=== PATIENT | male | born 1995 ===

== ENCOUNTER 2022-09-21 00:47 | Emergency (ER) | payer BC, SELFPAY ==
[2022-09-21] VITALS (7 sets, daily range): BP systolic 138–162; BP diastolic 90–103; PULSE 86–111; RESP 14–18; TEMP 36.6; O2SAT 99–100
[2022-09-21 01:16] LABS: Basophils Percent Auto 0.3 % (0.2-1.2); Eosinophils Percent Auto 0.2 % (0-4.4); Hematocrit 46.6 % (42.0-52.0); Hemoglobin 15.8 g/dL (14.0-18.0); Immature Granulocyte Absolute 0.05 K/mm3 (0.00-0.031); Immature Granulocyte Percent A 0.3 % (0-0.5); Lymphocytes Absolute Auto 1.25 K/mm3 (0.9-3.2); Lymphocytes Percent Auto 8.4 % (18.3-44.2); Mean Corpuscular HGB Conc 33.9 g/dl (32-36); Mean Corpuscular Hemoglobin 29.4 pg (26-34); Mean Corpuscular Volume 86.6 fl (80-100); Mean Platelet Volume 10.4 fl (7.4-10.4); Monocytes Absolute Auto 0.5 K/mm3 (0.1-0.6); Monocytes Percent Auto 3.1 % (2.6-8.5); Neutrophils Percent Auto 87.7 % (45.5-73.1); Platelet Count Result 248 k/mm3 (150-375); Red Blood Count 5.38 M/mm3 (4.6-6.20); Red Cell Distribution Width 12.8 % (11.5-14.5); White Blood Count 14.9 K/mm3 (4.5-10.0)
[2022-09-21 01:39] LABS: Alanine Aminotransferase 24 U/L (6-50); Albumin Level 5.3 g/dL (3.5-5.1); Alkaline Phosphatase 81 U/L (38-126); Anion Gap 9 mmol/L (8-16); Aspartate Amino Transferase 21 U/L (17-59); Bilirubin,Total 0.7 mg/dL (0.2-1.3); Blood Urea Nitrogen 16 mg/dL (9-20); Calcium 9.5 mg/dL (8.4-10.2); Carbon Dioxide 30 mmol/L (22-30); Chloride 100 mmol/L (98-107); Estimated CRCL calculation 122 ml/min; Estimated Glomerular Filt Rate > 60; Glucose 142 mg/dL (65-110); Lipase 54 U/L (23-300); Potassium 4.1 mmol/L (3.4-5.0); Sodium 139 mmol/L (137-145)
[2022-09-21 01:49] LABS: Appearance Urine Turbid (Clear); Bacteria Urine None Seen /hpf; Bilirubin Urine Negative (Negative); Blood Urine Negative (Negative); Color Urine Dark Yellow (Yellow); Glucose Urine UA Negative (Negative); Ketones Urine Trace mg/dL (Negative); Leukocyte Esterase Ur Negative LEU/UL (Negative); Need Manual Microscopic Reviewed; Nitrate Urine Negative (Negative); Protein Urine Trace mg/dL (Negative); RBC Urine 0-2 /hpf (0-2); Specific Grav Ur 1.034 (1.001-1.035); Squamous Epithelial Cell Urine None seen /hpf (Few); Urobilinogen Urine 0.2 mg/dL (<2.0); WBC Urine 0-5 /hpf; pH Urine 5.5 (5.0-9.0)
[2022-09-21 01:50] LABS: Add Urine Microscopic? YES
[2022-09-21] MEDS: DICYCLOMINE HCL INJ 20 MG/2 ML VIAL IM (03:14)
[2022-09-21] MEDS: SODIUM CHLORIDE 0.9% IV 1,000 ML 999 ML IV CONT (03:17)
[2022-09-21] MEDS: METOCLOPRAMIDE HCL INJ 10 MG/2 ML VIAL IV PUSH (03:18)
[2022-09-21] MEDS: FAMOTIDINE 20 MG/2 ML VIAL IV PUSH (03:20)
--- NOTE | 2022-09-21 03:47 | ED.GENADULT ---
HPI - General Adult General Chief complaint: Abdominal Pain Stated complaint: abd'l pain Time Seen by Provider: 09/21/22 01:34 History of Present Illness HPI narrative: This is a 26-year-old male with chronic abdominal pain and alternating bowel habits presenting to ED with 5 days of lower crampy abdominal pain. Is nonradiating, 5 out 10 intensity and constant. He has had this many times in the past. Is improved with having a bowel movement. There are no exacerbating factors. Patient had diarrhea on Thursday and then had constipation. He has not eaten much for the last 2 days. He feels like he has to go the bathroom but he is unable to have a bowel movement. This causing him significant anxiety. Patient has been treated for irritable bowel syndrome in the past with amitriptyline but has not seen a GI physician. Related Data Home Medications Medication Instructions Recorded Confirmed tirzepatide 7.5 mg/0.5 mL 7.5 mg subcut WEEKLY 04/24/22 04/24/22 subcutaneous pen injector (Richie) Allergies Allergy/AdvReac Type Severity Reaction Status Date / Time No Known Allergies Allergy Verified 09/21/22 00:47 [facility] Past Medical History Medical History Abdominal discomfort BMI 33.0-33.9,adult BMI over 35 Irritable bowel syndrome Screening for lipid disorders Family History Family History Father Hypertension Other Family history of malignant neoplasm of breast Hyperlipidemia Social History Social History Smoking status: Former smoker Smokeless tobacco user: other Alcohol intake: current Exam Narrative: APPEARANCE: No apparent distress. Head: atraumatic. EYES: EOMI, NOSE: Atraumatic NECK: Trachea midline RESPIRATORY: No increased rate of breathing, clear to auscultation CARDIOVASCULAR: RRR, ABDOMINAL: Abdomen is soft nontender with no guarding or rebound MUSCULOSKELETAl: No obvious deformities NEURO: Alert. Moving 4/4 extremities SKIN:: Warm, dry. Normal color PSYCHIATRIC: Normal affect Course Vital Signs Vital signs: Vital Signs Temperature 98 F 09/21/22 00:49 Pulse Rate 111 H 09/21/22 00:49 Respiratory Rate 18 09/21/22 00:49 Blood Pressure 153/99 H 09/21/22 00:49 Pulse Oximetry 99 09/21/22 00:49 Oxygen Delivery Room Air 09/21/22 00:49 Temperature 98 F 09/21/22 00:49 Pulse Rate 90 09/21/22 03:29 Respiratory Rate 16 09/21/22 03:29 Blood Pressure 142/96 H 09/21/22 03:29 Pulse Oximetry 100 09/21/22 03:29 Oxygen Delivery Room Air 09/21/22 00:49 Medical Decision Making MDM Narrative Medical decision making narrative: -Presentation: 26-year-old male with IBS presenting with crampy abdominal pain. 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 Likely a stress reaction. Metabolic panel is within normal limits. Urine did not indicate infection. Dx tests considered but not ordered: CT abdomen pelvis, abdomen is soft nontender with no guarding or rebound. Given the patient's young age and chronicity of symptoms and not believe there would be a benefit to CT at this time. Patient and are in agreement. -Procedures: -Interventions: Reglan, normal saline, Pepcid, Bentyl -Shared decision making / Disposition: Upon re-evaluation the patient is feeling better. He would like to go home. He will be given prescriptions for
== END 2022-09-21 04:23 | disposition home or self-care (01) ==
PROVIDERS: Emergency Provider Emergency Medicine; PCP Family Medicine
DX: R10.30 Lower abdominal pain, unspecified (principal)
CPT/HCPCS: 36415; 80053; 81001; 83690; 85025; 96361; 96372; 96374; 96375; 99284; J0500; J2765; J7030

== ENCOUNTER 2024-10-25 16:44 | Emergency (ER) | payer BC, SELFPAY ==
[2024-10-25 16:57] VITALS: BP 139/91; PULSE 88; RESP 16; TEMP 36.6; O2SAT 100
[2024-10-25 17:24] LABS: EDUAAPPEAR Clear; EDUABILI Negative (Negative); EDUABLOOD Negative (Negative); EDUACOLOR1 Yellow; EDUAGLUCOSE Negative (Negative); EDUAKETONE Trace (Negative); EDUALEUKO Negative (Negative); EDUANITRATE Negative (Negative); EDUAPH 5.5; EDUAPROTEIN Negative (Negative); EDUAUROBILI 0.2
--- NOTE | 2024-10-25 17:33 | ED_ITS ---
HPI - Nausea/Vomiting/Diarrhea General Chief complaint: Urogenital-Male Stated complaint: DIARRHEA/URINARY FREQUENCY/DISCHARGE/BLEEDING Time Seen by Provider: 10/25/24 17:10 Source: patient and RN notes reviewed Mode of arrival: ambulatory Limitations: no limitations History of Present Illness HPI Narrative: 28-year-old male presents Express Care with spouse complaining of multiple medical complaints. Patient reports having nonstop diarrhea since yesterday. Patient denies any abdominal pain, nausea, vomiting, bloody stools, blood in vomit, or fevers. Patient also reports over the last 2 days he has noticed dysuria, penile discharge, and pain to his meatus of his penis. Patient reported discharge was white and has subsided. Reports still having pain to the meatus of his penis and having burning with urination. Patient denies any concerns for STIs. Related Data Home Medications ?Medication ?Instructions ?Recorded ?Confirmed ?Last Taken ?Type tirzepatide 7.5 mg/0.5 mL 7.5 mg subcut WEEKLY 04/24/22 04/24/22 Unknown History subcutaneous pen injector (Mounjaro) Allergies Allergy/AdvReac Type Severity Reaction Status Date / Time No Known Allergies Allergy Verified 09/21/22 00:47 Review of Systems Review of Systems: CONSTITUTIONAL: Denies fever, chills, or sweats. EYES: Denies visual changes, redness, or discharge. ENT: Denies rhinorrhea, congestion, sore throat, or otalgia. CARDIOVASCULAR: Denies chest pain, palpitations, or edema. RESPIRATORY: Denies cough or dyspnea. GASTROINTESTINAL: Denies abdominal pain, nausea, vomiting, bloody stools, hematochezia. Positive for diarrhea. GENITOURINARY: Positive for dysuria, penile pain, penile discharge. Negative for hematuria, testicular pain, testicular swelling, scrotal swelling. SKIN: Denies rash, suspicious lesions, or itching. MUSCULOSKELETAL: Denies back pain, joint pain, or myalgia. NEUROLOGIC: Denies headache, numbness, or weakness. PSYCHIATRIC: Denies anxiety or depression. All other systems reviewed are negative, except as documented in HPI. [facility] Past Medical History Medical History Abdominal discomfort BMI 33.0-33.9,adult BMI over 35 Irritable bowel syndrome Screening for lipid disorders Family History Family History Father Hypertension Other Family history of malignant neoplasm of breast Hyperlipidemia Social History Social History Smoking status: Former smoker Smokeless tobacco user: other Alcohol intake: current Comments At the time of my signature, I reviewed and agree with the nursing past medical, surgical, social, and family history. There is no relevant family history pertinent to the patient complaint. Exam Narrative: GENERAL: This is a well-nourished, well-developed adult, in no apparent distress. They are non ill-appearing, nontoxic appearing. HEAD: normocephalic, atraumatic. EYES: Sclera clear/white. Conjunctiva normal. Vision is grossly intact. Extraocular movements intact EARS: External ears normal, auditory canals clear and without drainage, TMs normal without perforation. Hearing grossly intact. NOSE: External nose normal with no obvious nasal discharge, nasal turbinates without redness, no rhinorrhea. THROAT: Mucous membranes moist, posterior pharynx clear, without erythema or swelling. Uvula midline. NECK: Neck supple, non-tender without lymphadenopathy, masses or thyromegaly. CARDIOVASCULAR: Regular rate and rhythm without murmurs, gallops, or rubs. RESPIRATORY: Clear to auscultation. Breath sounds equal bilaterally. No wheezes, rales, or rhonchi. GASTROINTESTINAL: Abdomen soft, flat, non-tender, nondistended. Bowel sounds are active. No hepato-splenomegaly, or palpable masses. No guarding. No rebound tenderness. GENITOURINARY: Penis: No suspicious lesions, swelling, discharge present. No swelling or redness to the head of penis or meatus. Tenderness to palpation to the meatus. No discharge present to the urethra with manipulation of the meatus. Cremasteric reflex intact bilaterally. No swelling or tenderness to scrotum or testicle. No swelling to the epididymis bilaterally. SKIN: warm, Dry, intact with no suspicious lesions or rash, good texture and turgor. NEURO: awake, alert, and oriented to person, place and time. There were no obvious focal neurologic abnormalities. EXTREMITIES: No joint tenderness, effusion, or edema noted. BACK: Nontender without deformity. No CVA tenderness. Course Course Emergency Course: Portions of this record may have been created with voice recognition software Level of Care: Express Care Visit Vital Signs Vital signs: Vital Signs Temperature 98 F 10/25/24 16:57 Pulse Rate 88 10/25/24 16:57 Respiratory Rate 16 10/25/24 16:57 Blood Pressure 139/91 H 10/25/24 16:57 Pulse Oximetry 100 10/25/24 16:57 Temperature 98 F 10/25/24 16:57 Pulse Rate 88 10/25/24 16:57 Respiratory Rate 16 10/25/24 16:57 Blood Pressure 139/91 H 10/25/24 16:57 Pulse Oximetry 100 10/25/24 16:57 Reviewed MDM - Nausea/Vomiting/Diarrhea MDM Narrative Medical decision making narrative: Urine dipstick negative for urinary tract infection. Culture pending. No discharge present during penile exam. Patient reports pain to his urethral meatus when palpating. Patient denies any concerns for STIs. Patient is agreeable to have STI testing performed to assess for cause of possible ureteritis. STI testing is pending. Patient wants to wait for treatment until the results of the STI testing come back. Patient also likely has a viral gastroenteritis. Patient is able to keep fluids down appears clinically hydrated. Will prescribe Zofran as needed for nausea and vomiting. Advised patient to follow-up with GI. Discussed physical exam findings. Advised supportive measures and signs/symptoms to go to the ER. Pt is appropriate for outpt treatment and f/u. Differential Diagnosis Differential diagnosis: Likely traveler's diarrhea, gastroenteritis and other (STI, a urinary tract infection) Lab Data Attestation: I reviewed the patient's lab results. Labs: Lab Results 10/25/24 Range/Units 17:22 POC Urine Color Yellow POC Urine Clarity Clear POC Urine pH 5.5 POC Ur Specif [place] 1.010 POC Urine Protein Negative (Negative) POC Ur Glucose (UA) Negative (Negative) POC Urine Ketones Trace (Negative) POC Urine Blood Negative (Negative) POC Urine Nitrite Negative (Negative) POC Urine Bilirubin Negative (Negative) POC Urine Urobilinogen 0.2 POC U Leukocyte Esteras Negative (Negative) Critical Care Time Critical Care Time Critical Care Time: No Discharge Plan Discharge Clinical Impression: Gastroenteritis, Dysuria Patient Disposition: Home Condition: Stable Instructions: Gastroenteritis (ED), Urethritis (ED) Additional Instructions: It Is likely have gastroenteritis. You May take Pepto-Bismol as directed for diarrhea. Pepto-Bismol may make your stool green or black. You may take Bentyl as directed for stomach cramping. Drink plenty of fluids including Pedialyte. Take Zofran as needed for nausea and vomiting. Urine dipstick was negative for any evidence of infection. Urine culture will be sent off and you will be contacted with if it is positive with any bacteria and we placed on appropriate antibiotics at that time. You will be also be contacted about the results of your STI testing. Definity test become positive you will be treated with appropriate antibiotics at that time. Please follow-up with your primary care provider in 3-5 days for further evaluation and management. Please follow-up with the GI specialist with your ongoing GI problems. If he develops any worsening diarrhea, blood in your stool, abdominal pain, fevers, testicular pain or swelling, or any other concerns please go to the ER immediately. Patient Language: Malagasy Prescriptions: New ondansetron 4 mg tablet,disintegrating 4 mg PO Q8H PRN (Reason: nausea and vomiting) Qty: 12 0RF No Action Mounjaro 7.5 mg/0.5 mL pen injector 7.5 mg subcut WEEKLY metoclopramide HCl [Reglan] 10 mg tablet 10 mg PO Q6H PRN (Reason: nausea and vomiting) Qty: 60 0RF dicyclomine 20 mg tablet 20 mg PO TID Qty: 60 0RF dicyclomine 20 mg tablet 20 mg PO TID Qty: 60 0RF metoclopramide HCl [Reglan] 10 mg tablet 10 mg PO Q6H PRN (Reason: nausea and vomiting) Qty: 60 0RF amitriptyline 25 mg tablet 25 mg PO QHS Qty: 30 5RF Follow-up/Referrals: Dereje,Karen [Other] Time of Disposition: 17:33
[2024-10-25 21:13] LABS: Chlamydia trachomatis NOT DETECTED (NOT DETECTE); Neisseria gonorrhoeae PCR NOT DETECTED (NOT DETECTE)
[2024-10-25 21:27] LABS: Trichomonas Vag PCR NOT DETECTED (NOT DETECTE)
== END 2024-10-25 17:39 | disposition home or self-care (01) ==
DX: K52.9 Noninfective gastroenteritis and colitis, unspecified (principal); R30.0 Dysuria; Z11.3 Encounter for screening for infections with a predominantly sexual mode of transmission; Z87.891 Personal history of nicotine dependence
CPT/HCPCS: 81003; 87086; 87491; 87591; 87661; 99213; G0463